=== PATIENT | male | born 2000 | race Two or more races ===

== ENCOUNTER 2025-06-19 06:45 | Emergency (ER) | payer MEDICAID ==
[~2025-06-19] VITALS: Ht 167.6 cm; Wt 113.6 kg
[2025-06-19 06:50] VITALS: TEMP 99.9
[2025-06-19 07:08] LABS: COVID AG,FIA SOURCE NASAL SWAB
[2025-06-19 07:42] LABS: SARS-COV2 (COVID) ANTIGEN,FIA Negative (Negative)
[2025-06-19 07:43] LABS: INFLUENZA TYPE A NEGATIVE FOR TYPE A (NEGATIVE); INFLUENZA TYPE B NEGATIVE FOR TYPE B (NEGATIVE)
[2025-06-19 08:11] LABS: PLATELET COUNT (AUTO) 184 K/uL (150-450); RED BLOOD CELL COUNT(AUTO) 5.29 MIL/uL (4.50-5.90); RED CELL DISTRIBUTION WIDTH 13.0 % (11.5-14.5); WHITE BLOOD COUNT (AUTO) 6.6 K/uL (4.5-11.0)
[2025-06-19] MEDS: SODIUM CHLORIDE 0.9% 3,400 ML IV ONE (08:13)
[2025-06-19 08:17] LABS: CALCIUM, TOTAL 8.2 mg/dL (8.8-10.5); CREATININE 1.04 mg/dL (0.60-1.30); GLOMERULAR FILTR. RATE CALC > 60 mL/min (>60); GLUCOSE,RANDOM 104 mg/dL (70-110); SODIUM SERUM 131 mmol/L (136-145); UREA NITROGEN, BLOOD 10 mg/dL (7-18)
[2025-06-19] MEDS: KETOROLAC TROMETHAMINE 30 MG/ML VIAL IVP ONE (08:33)
[2025-06-19 09:24] LABS: APPEARANCE,URINE HAZY (CLEAR); GLUCOSE, URINE (UA) NEGATIVE (NEGATIVE); LEUKOCYTE ESTERASE ,URINE NEGATIVE (NEGATIVE); NITRATE,URINE NEGATIVE (NEGATIVE); OCCULT BLOOD,URINE NEGATIVE (NEGATIVE); SPECIFIC GRAVITIY, URINE 1.029 (1.003-1.030)
[2025-06-19 09:32] LABS: SQUAMOUS EPITHELIAL CELL,UR Few /LPF (None Seen)
[2025-06-19] MEDS: OxyCODONE HCL/ACETAMINOPHEN 5-325 MG TABLET PO ONE ×2 (10:02→14:16)
[2025-06-19] MEDS ORDERED: IBUP-1492 PO (12:37)
[2025-06-19] MEDS ORDERED: METH-659 PO (14:11)
[2025-06-19] MEDS ORDERED: LIDO-57 TP (14:11)
[2025-06-19] MEDS: LIDOCAINE 5% TRANSDERMAL PATCH TD ONE (14:17)
[2025-06-19 14:20] VITALS: BP 128/86; PULSE 94; RESP 18; O2SAT 97
== END 2025-06-19 15:00 | disposition home or self-care (01) ==
LOC: EMS 06:45
DX: M54.6 Pain in thoracic spine (principal); R10.A2 Flank pain, left side; R07.89 Other chest pain; R05.9 Cough, unspecified; F17.210 Nicotine dependence, cigarettes, uncomplicated; F10.90 Alcohol use, unspecified, uncomplicated; Z88.0 Allergy status to penicillin; Z20.822 Contact with and (suspected) exposure to COVID-19; Y90.9 Presence of alcohol in blood, level not specified
CPT/HCPCS: 99285; 96374; 96361; 71045; 71046; 87426; 80048; 81001; 85025; 87804; 36415; J1885; J7030